=== PATIENT | female | born 1990 | race Caucasian/White ===

== ENCOUNTER 2019-12-03 13:28 | Outpatient (RCR) | payer OTHER, BC, SELFPAY ==
[2019-12-04] MEDS: RHO(D) IMMUNE GLOBULIN 300 MCG SYRINGE IM (13:40)
== END 2020-03-02 23:59 | disposition home or self-care (01) ==
LOC: ANHLAB 13:28
PROVIDERS: PCP Family Medicine; Visit Provider Obstetrics & Gynecology
DX: Z29.13 Encounter for prophylactic Rho(D) immune globulin (principal); O36.0990 Maternal care for other rhesus isoimmunization, unspecified trimester, not applicable or unspecified; Z3A.00 Weeks of gestation of pregnancy not specified
CPT/HCPCS: 36415; 85461; 90384; 96372; J2790

== ENCOUNTER 2020-01-16 15:19 | Outpatient (RCR) | payer OTHER, BC, SELFPAY ==
[2020-01-16 15:54] VITALS: BP 127/82; PULSE 77
== END 2020-01-29 09:38 | disposition home or self-care (01) ==
LOC: ANHOBOP 15:19
PROVIDERS: PCP Family Medicine; Visit Provider Obstetrics & Gynecology
DX: O36.5930 Maternal care for other known or suspected poor fetal growth, third trimester, not applicable or unspecified (principal); Z3A.34 34 weeks gestation of pregnancy
CPT/HCPCS: 59025

== ENCOUNTER 2020-01-18 09:23 | Outpatient (CLI) | payer OTHER, BC, SELFPAY ==
[2020-01-18 09:45] VITALS: BP 128/81; PULSE 85
[2020-01-18 10:00] VITALS: BP 130/83; PULSE 78
[2020-01-18 10:10] LABS: Basophils Percent Auto 0.5 % (0.2-1.2); Eosinophils Absolute Auto 0.1 K/mm3 (0-0.3); Eosinophils Percent Auto 0.7 % (0-4.4); Hematocrit 33.8 % (37.0-47.0); Hemoglobin 12.3 g/dL (12.0-15.0); Immature Granulocyte Absolute 0.03 K/mm3 (0.00-0.031); Immature Granulocyte Percent A 0.4 % (0-0.5); Lymphocytes Absolute Auto 2.69 K/mm3 (0.9-3.2); Lymphocytes Percent Auto 32.2 % (18.3-44.2); Mean Corpuscular HGB Conc 36.4 g/dl (32-36); Mean Corpuscular Hemoglobin 32.5 pg (26-34); Mean Corpuscular Volume 89.2 fl (80-100); Mean Platelet Volume 12.7 fl (7.4-10.4); Monocytes Absolute Auto 0.5 K/mm3 (0.1-0.6); Monocytes Percent Auto 5.4 % (2.6-8.5); Neutrophils Absolute Auto 5.1 K/mm3 (1.3-6.7); Neutrophils Percent Auto 60.8 % (45.5-73.1); Platelet Count Result 167 k/mm3 (150-375); Red Blood Count 3.79 M/mm3 (4.2-5.4); Red Cell Distribution Width 11.4 % (11.5-14.5); White Blood Count 8.4 K/mm3 (4.5-10.0)
[2020-01-18 10:15] VITALS: BP 130/86; PULSE 72
[2020-01-18 10:23] LABS: Alanine Aminotransferase 16 U/L (4-35); Albumin Level 3.4 g/dL (3.5-5.1); Alkaline Phosphatase 103 U/L (38-126); Anion Gap 5 mmol/L (8-16); Aspartate Amino Transferase 29 U/L (14-36); Bilirubin,Total 0.2 mg/dL (0.2-1.3); Blood Urea Nitrogen 9 mg/dL (7-17); Calcium 8.9 mg/dL (8.4-10.2); Carbon Dioxide 25 mmol/L (22-30); Chloride 103 mmol/L (98-107); Estimated Glomerular Filt Rate > 60; Glucose 76 mg/dL (65-105); Potassium 4.2 mmol/L (3.4-5.0); Sodium 133 mmol/L (137-145); Uric Acid 6.5 mg/dL (2.5-7.5)
--- NOTE | 2020-01-18 10:26 | PM.OBTRLD ---
OB - Triage/Final Diagnosis Visit Information Date of evaluation: 01/18/20 Reason for evaluation: other (rule out preeclampsia ) Evaluation Laboratory results: Laboratory Tests 01/18/20 01/18/20 09:43 09:43 WBC 8.4 RBC 3.79 L Hgb 12.3 Hct 33.8 L MCV 89.2 MCH 32.5 MCHC 36.4 H RDW 11.4 L Plt Count 167 MPV 12.7 H Immature Gran % (Auto) 0.4 Neut % (Auto) 60.8 Lymph % (Auto) 32.2 [place] % (Auto) 5.4 Eos % (Auto) 0.7 Baso % (Auto) 0.5 Lymph # (Auto) 2.69 [place] # (Auto) 0.5 Eos # (Auto) 0.1 Baso # (Auto) 0.0 Abs Immat Gran (auto) 0.03 Absolute Neuts (auto) 5.1 Absolute Nucleated RBC 0.0 Nucleated RBC % 0.0 Sodium 133 L Potassium 4.2 Chloride 103 Carbon Dioxide 25 Anion Gap 5 L BUN 9 Creatinine 0.70 Estim Creat Clear Calc Not Reportable Estimated GFR > 60 Glucose 76 Uric Acid 6.5 Calcium 8.9 Total Bilirubin 0.2 AST 29 ALT 16 Alkaline Phosphatase 103 Total Protein 6.0 L Albumin 3.4 L Vital signs: Vital Signs - 24 hr 01/18/20 09:45 01/18/20 10:00 01/18/20 10:15 Pulse Rate 85 78 72 Blood Pressure 128/81 130/83 130/86
[2020-01-18 10:30] VITALS: BP 126/76; PULSE 76
[2020-01-18 10:30] LABS: Add Urine Microscopic? YES; Appearance Urine Clear (Clear); Bacteria Urine Trace /hpf; Bilirubin Urine Negative (Negative); Blood Urine Negative (Negative); Color Urine Straw (Yellow); Glucose Urine UA Negative (Negative); Ketones Urine Negative (Negative); Leukocyte Esterase Ur 1+ LEU/UL (NEGATIVE); Nitrate Urine Negative (Negative); Protein Urine Negative (Negative); Specific Grav Ur 1.008 (1.001-1.035); Squamous Epithelial Cell Urine Few /hpf (Few); Urobilinogen Urine Negative mg/dL (<2.0)
--- NOTE | 2020-01-18 10:35 | PC.NURSE ---
Dr. Vasquez on unit. Informed of BPs and lab results. Informed of pt complaining of headache and weird vision. May D/C home with precautions. Follow up in office this week.
[2020-01-18 10:39] LABS: Creatinine Urine 45.9 mg/dL; Total Protein Urine Random 11 mg/dL; Ur Ttl Prot Creatinine Ratio 0.24 mg/mg (0-0.20)
== END 2020-01-18 10:40 | disposition home or self-care (01) ==
LOC: ANHOBOP 09:32 → ANHOBPP 09:34
PROVIDERS: Student in an Organized Health Care Education/Training Program; PCP Family Medicine; Visit Provider Obstetrics & Gynecology
DX: R03.0 Elevated blood-pressure reading, without diagnosis of hypertension (principal); Z51.81 Encounter for therapeutic drug level monitoring; Z79.899 Other long term (current) drug therapy
CPT/HCPCS: 36415; 59025; 80053; 81001; 82570; 84156; 84550; 85025; 87086; 99199

== ENCOUNTER 2020-01-28 15:04 | Inpatient (IN) | payer OTHER, BC, SELFPAY ==
[2020-01-28] VITALS (36 sets, daily range): BP systolic 102–195; BP diastolic 68–178; PULSE 25–174; RESP 16; TEMP 36.6–36.8; O2SAT 89–100
--- NOTE | 2020-01-28 15:48 | LDADM ---
This patient, Maria T Peña, was admitted to Labor/Delivery/Recovery 105 on 01/28/20 at 15:04. Plans for labor, pain management and were discussed with patient. Patient/family oriented to hospital policies and general routines including ID bracelet, bed and alarms, visiting hours, pain management, procedures, bathroom and other care routines, personal items, smoking policy, room service/diet and guest tray routines, infant security routines, and visiting hours. Patient/Family are encouraged to report perceived risks to care and to ask questions if they do not understand what they are told or what they should do. See OBIX for further documentation.
[2020-01-28] MEDS: LACTATED RINGERS 1,000 ML 125 ML IV CONT ×2 (16:16→16:39)
[2020-01-28 16:24] LABS: Basophils Absolute Auto 0.1 K/mm3 (0.0-0.1); Basophils Percent Auto 0.4 % (0.2-1.2); Eosinophils Percent Auto 0.3 % (0-4.4); Hematocrit 33.4 % (37.0-47.0); Hemoglobin 12.6 g/dL (12.0-15.0); Immature Granulocyte Absolute 0.07 K/mm3 (0.00-0.031); Immature Granulocyte Percent A 0.6 % (0-0.5); Immature Platelet Fraction Pct 19.3 % (0.9-11.2); Lymphocytes Percent Auto 35.1 % (18.3-44.2); Mean Corpuscular HGB Conc 37.7 g/dl (32-36); Mean Corpuscular Hemoglobin 32.7 pg (26-34); Mean Corpuscular Volume 86.8 fl (80-100); Mean Platelet Volume 13.4 fl (7.4-10.4); Monocytes Absolute Auto 0.6 K/mm3 (0.1-0.6); Monocytes Percent Auto 5.3 % (2.6-8.5); Neutrophils Absolute Auto 6.8 K/mm3 (1.3-6.7); Neutrophils Percent Auto 58.3 % (45.5-73.1); Platelet Count Result 184 k/mm3 (150-375); Red Blood Count 3.85 M/mm3 (4.2-5.4); Red Cell Distribution Width 11.8 % (11.5-14.5); White Blood Count 11.7 K/mm3 (4.5-10.0)
--- NOTE | 2020-01-28 16:46 | WPDANESEPPF ---
Anes - Initial Pre Proc Eval Date/Time: 01/28/20 16:46 Surgeon: Lev Osborn MD Pre Op Diagnosis: srom Patient Data Age: 29 Gender: F Height: Weight: Last Vital Signs Temp 36.6 C 01/28/20 15:30 Pulse 81 01/28/20 15:16 BP 151/98 H 01/28/20 15:16 Allergies Allergy/AdvReac Type Severity Reaction Status Date / Time Penicillins Allergy Intermediate Hives,Rash Verified 01/22/20 15:38 Home Medications Medication Instructions Recorded Confirmed Type cetirizine [Zyrtec] 10 mg PO DAILY 01/22/20 01/28/20 History levothyroxine 112 mcg PO DAILY 01/22/20 01/28/20 History prenat.vits,marissa,brb-[id number] 1 tablet PO DAILY 01/22/20 01/28/20 History [ #2] Laboratory Tests 01/28/20 01/28/20 01/28/20 15:27 15:27 15:27 WBC 11.7 K/mm3 H K/mm3 (4.5-10.0) RBC 3.85 M/mm3 L M/mm3 (4.2-5.4) Hgb 12.6 g/dL g/dL (12.0-15.0) Hct 33.4 % L % (37.0-47.0) MCV 86.8 fl fl (80-100) MCH 32.7 pg pg (26-34) MCHC 37.7 g/dl H g/dl (32-36) RDW 11.8 % % (11.5-14.5) Plt Count 184 k/mm3 k/mm3 (150-375) MPV 13.4 fl H fl (7.4-10.4) Immature Gran % (Auto) 0.6 % H % (0-0.5) Neut % (Auto) 58.3 % % (45.5-73.1) Lymph % (Auto) 35.1 % % (18.3-44.2) [place] % (Auto) 5.3 % % (2.6-8.5) Eos % (Auto) 0.3 % % (0-4.4) Baso % (Auto) 0.4 % % (0.2-1.2) Lymph # (Auto) 4.10 K/mm3 H K/mm3 (0.9-3.2) [place] # (Auto) 0.6 K/mm3 K/mm3 (0.1-0.6) Eos # (Auto) 0.0 K/mm3 K/mm3 (0-0.3) Baso # (Auto) 0.1 K/mm3 K/mm3 (0.0-0.1) Abs Immat Gran (auto) 0.07 K/mm3 H K/mm3 (0.00-0.031) Absolute Neuts (auto) 6.8 K/mm3 H K/mm3 (1.3-6.7) Absolute Nucleated RBC 0.0 K/mm3 K/mm3 (0.0-0.012) Nucleated RBC % 0.0 % % (0.0-0.2) % Immature Plt Fraction 19.3 % H % (0.9-11.2) RPR Pending HIV 1&2 Ab/P24 Ag 4thGn Pending Patient hx anesthesia problems: none Family hx anesthesia problems: none PMFSH Family History Family History Grandparent Hypertension Malignant neoplasm of prostate Family history of lung cancer Mother Patient's mother is in good health Father Patient's father is in good health Sibling Patient's sister is in good health Patient's brother is in good health Social History Social History Smoking status: Never smoker Alcohol intake: current Substance use: never Spiritual care concerns: No Anes - Eval Final PreProcedure Day of Procedure 01/28/20 16:46 Patient weight: overweight Heart: regular rate and rhythm Lungs: clear to auscultation and normal air movement Airway: Mallampati scale class II Neurological: alert and oriented Last oral intake: >/= 8 hours ASA classification: II Emergent: no Anesthetic plan: proceed Anesthesia type and monitoring: regional epidural Informed Consent: The patient's anesthetic plan and its attendant risks and benefits were discussed with the patient/family/POA. Questions were solicited and answers provided to the satisfaction of the patient/family/POA.
[2020-01-28 17:17] LABS: HIV 1/2 Ab P24 Ag Result Negative (Negative)
--- NOTE | 2020-01-28 18:27 | WPDOBADMIT ---
Obstetrics - Admit Note Admission Note: record reviewed. Additions to the history and/or subsequent changes in the physical findings follow. 29 y/o G1 at 36 4/7 weeks here after a gush of fluid around 1030 today, clear. GBS unknown. Cervix was 1cm on admission to the hospital. She began to have contractions and her labor has progressed rapidly without stimulation. Epidural in place. Has begun pushing. AVSS NST reactive TOCO: contractions every 3-4min ABD soft, nontender, gravid, vertex EXT nontender Cervix C/+2 A: IUP at 36 4/7 weeks with SROM/labor. P: Pushing. Anticipate .
--- NOTE | 2020-01-28 19:16 | P.PCNOB_ITS ---
OB - Delivery Note Procedure Delivery date: 01/28/20 Procedure: events: Labor < 37 Weeks Induction method: none Delivery augmentation: pitocin Delivery monitor: external FHT and external uterine Route of delivery: Delivery repair: vicryl (3-0) Specimen: Yes (cord blood) Quantitative Blood Loss (ml): 140 Anesthesia type: Epidural Disposition: PACU Complications: None Narrative: 29 y/o G1 at 36 4/7 weeks gestation who presented to the hospital after a gush of clear fluid. SROM was diagnosed. She had contractions and labor progressed without stimulation. She received an epidural for pain control. Her labor progressed and her cervix dilated completely. Her second stage of labor was augmented with oxytocin. She pushed with good effort. The head rotated from the LOP position to the MANNY position and delivered to the perineum, followed by the body. The nose and mouth were bulb suctioned. After a delay, the cord was clamped and cut. The was handed off the field. Cord blood was collected. The placenta delivered spontaneously and was grossly normal in appearance. The usual 3 vessel cord was noted. A distal vaginal laceration was sustained. This was reapproximated using 3 0 Vicryl in running, locked fashion. Excellent hemostasis resulted as did excellent reapproximation of the normal anatomy. Needle and instrument counts were correct. The patient was taken to recovery room in stable condition. The went to the nursery in stable condition. I was present and scrubbed for the entire delivery. [place] Baby Date of : 01/28/20 Time of : 18:54 Weeks of gestation at delivery: 36 Infant gender: Male Weight (pounds): 5 Weight (ounces): 11 presentation: vertex position: Left Occiput Anterior Placenta delivery description: Spontaneous and Normal Configuration cord vessel description: 3 Vessels score one minute: 8 score five minutes: 9
--- NOTE | 2020-01-28 19:19 | PM.OBDSVD ---
DS: Admitting Diagnosis Admitting Diagnosis Admitting Diagnosis: SROM labor at 36 4/7 weeks DS: Discharge Diagnosis Discharge Diagnosis (1) (normal spontaneous vaginal delivery): Code(s): O80 - Encounter for full-term uncomplicated delivery Status: Acute OB - DS: Summary OB Procedures : None OB Procedures Intrapartum: Spontaneous Vag Delivery OB Procedures: : RHo (D) lg Time Spent with Patient Time attestation: Total time spent providing and/or coordinating discharge services: DS: Data Data Completed and Pending Labs on day of discharge: Labs from last 24 hours 01/28/20 01/28/20 01/28/20 15:27 15:27 15:27 WBC 11.7 H RBC 3.85 L Hgb 12.6 Hct 33.4 L MCV 86.8 MCH 32.7 MCHC 37.7 H RDW 11.8 Plt Count 184 MPV 13.4 H Immature Gran % (Auto) 0.6 H Neut % (Auto) 58.3 Lymph % (Auto) 35.1 [place] % (Auto) 5.3 Eos % (Auto) 0.3 Baso % (Auto) 0.4 Lymph # (Auto) 4.10 H [place] # (Auto) 0.6 Eos # (Auto) 0.0 Baso # (Auto) 0.1 Abs Immat Gran (auto) 0.07 H Absolute Neuts (auto) 6.8 H Absolute Nucleated RBC 0.0 Nucleated RBC % 0.0 % Immature Plt Fraction 19.3 H RPR Pending HIV 1&2 Ab/P24 Ag 4thGn Blood Type O Negative Antibody Screen Positive Antibody Identification Pending Antigen Identification Pending WARNER, IgG Interpret Pending WARNER, Poly Interpret Pending WARNER, Complement Interp Pending 01/28/20 15:27 WBC RBC Hgb Hct MCV MCH MCHC RDW Plt Count MPV Immature Gran % (Auto) Neut % (Auto) Lymph % (Auto) [place] % (Auto) Eos % (Auto) Baso % (Auto) Lymph # (Auto) [place] # (Auto) Eos # (Auto) Baso # (Auto) Abs Immat Gran (auto) Absolute Neuts (auto) Absolute Nucleated RBC Nucleated RBC % % Immature Plt Fraction RPR HIV 1&2 Ab/P24 Ag 4thGn Negative Blood Type Antibody Screen Antibody Identification Antigen Identification WARNER, IgG Interpret WARNER, Poly Interpret WARNER, Complement Interp Discharge Plan Discharge Attending physician on discharge: Lev Osborn Discharging Clinician: Lev Osborn Patient Disposition: Home, Self-Care Activity: pelvic rest Diet: regular Discharge Instructions: Call or return if temperature above 100.4? F, increased abdominal pain, increased vaginal bleeding or any new problems. Stand Alone Forms: General Discharge Information Follow-up/Referrals: Lev Osborn MD [Physician] - 6 Weeks Discharge Medications: New ibuprofen 600 mg tablet 600 mg PO Q6H PRN (Reason: cramps) Qty: 30 RF: 0 No Action cetirizine [Zyrtec] 10 mg Tablet 10 mg PO DAILY RF: 0 levothyroxine 112 mcg Tablet 112 mcg PO DAILY RF: 0 #2 Tablet 1 tablet PO DAILY RF: 0 Date of admission: 01/28/20 15:04 Primary Care Provider: Lucian,Armaan Longoria Admitting Provider: Lev Osborn Attending physician on admission: Lev Osborn Condition: Stable
[2020-01-28] MEDS: OXYTOCIN 30 UNITS/NS 500 ML 30 UNITS/500 ML BAG 125 UNITS IV CONT (19:37)
[2020-01-28] MEDS: WITCH HAZEL 40 PADS 1 PAD TOPICAL (20:38)
[2020-01-28] MEDS: BENZOCAINE 20% AER SPR (*SP) 56 GM CAN 1 SPRAY TOPICAL (20:38)
[2020-01-28] MEDS: LANOLIN (LANSINOH) 7.5 GM CREAM 1 APPLIC TOPICAL (20:38)
[2020-01-28] MEDS: IBUPROFEN 600 MG TABLET PO (20:38)
[2020-01-29 05:36] LABS: Hematocrit 27.3 % (37.0-47.0)
[2020-01-29 07:36] LABS: Rapid Plasma Reagin Non-Reactive (NonReactive)
[2020-01-29] MEDS: MULTIVIT/MIN/PREN/FOL AC/IRON TABLET 1 TAB PO (07:38)
[2020-01-29] MEDS: LEVOTHYROXINE SODIUM 112 MCG TABLET PO (07:38)
[2020-01-29] MEDS: DOCUSATE SODIUM 100 MG CAPSULE PO (07:43)
[2020-01-29] MEDS: LORATADINE 10 MG TABLET PO (07:43)
[2020-01-29 08:20] VITALS: BP 140/86; PULSE 75; RESP 18; TEMP 37.2
[2020-01-29] MEDS: IBUPROFEN 600 MG TABLET PO ×3 (09:08→23:15)
--- NOTE | 2020-01-29 09:30 | PC.NURSE ---
Pt passed an approximately 4 cm clot in toilet while urinating. Pt is urinating slowly and cannot tell if she is fully emptying her bladder.
--- NOTE | 2020-01-29 10:40 | PC.NURSE ---
Pt called RN to the room because she felt a large amt of vaginal bleeding. Pt alert and oriented in bed and cooperative with fundal massage. Fundus is firm at 1/u and deviated to the left. Moderate amount of vaginal flow is expelled when massaging the uterus. When palpating bladder, pt states she feels like she could go to the BR. Ambulated pt to the BR but she was unable to fully empty. No active bleeding while in the BR. Pt returned to bed and fundus is still at 1/u and deviated to the lt. Pt agrees to straight catheterization after explaining procedure to her. 1100: Straight cath. performed without difficulty and received 550 of clear yellow fluid. Bladder is no longer palpable and fundus is firm at u/u and midline. No active vaginal bleeding at this time. Pt resting in bed comfortably at this time.
[2020-01-29] MEDS: ACETAMINOPHEN 325 MG TABLET 650 MG PO ×2 (11:35→21:46)
[2020-01-29] MEDS: RHO(D) IMMUNE GLOBULIN 300 MCG SYRINGE IM (12:17)
--- NOTE | 2020-01-29 12:30 | PC.NURSE ---
0845 0930 At bedside for baby's feeding at 0845 ; baby sleepy. Put to breast; nipple shield used and mother shown how to correctly place nipple shield. baby initially showed no feeding cues or interest in feeding; very sleepy. Mother kept him at the breast for 15minutes, and he did latch and suckle a little, but not effective breast feeding; mother states this is how he has been at feedings. Reviewed with mother positioning, alignment in football position. Reviewed nipple care, and care of nipple shield. Per Dr. Douglas's order baby will be supplemented after each breast feeding, minimum of 15cc increasing as baby desires. FOB fed at 0915. Baby initially took feeding slowly, then his effective sucking improved, and he took the total of 21cc. Parents shown paced bottle feeding, and how to burp infant. Mother set up with breast pump; assessed for correct flange size, and she will pump after each breast feeding. Reviewed care of pumping equipment. Feeding plan is now, attempt breast, then pump and bottle feed at each feeding. Mother and FOB voiced understanding of all instructions and are in agreement with this plan. Per Dr. Douglas, this feeding plan initiated because of baby's gestational age at 36 weeks, ineffective breast feeding, and baby's positive WARNER. Mother knows to call for nurse assistance at the next feeding.
--- NOTE | 2020-01-29 12:47 | P.PNOB_ITS ---
OB - PN: Subj Subjective Date/time seen: 01/29/20 12:47 Narrative: Pain OK. Would like circumcision for son. OB - PN: Obj Data Labs CBC & Chem 7: 01/29/20 05:07 Labs: Laboratory Results - last 24 hr 01/28/20 01/28/20 01/28/20 15:27 15:27 15:27 WBC 11.7 H RBC 3.85 L Hgb 12.6 Hct 33.4 L MCV 86.8 MCH 32.7 MCHC 37.7 H RDW 11.8 Plt Count 184 MPV 13.4 H Immature Gran % (Auto) 0.6 H Neut % (Auto) 58.3 Lymph % (Auto) 35.1 [place] % (Auto) 5.3 Eos % (Auto) 0.3 Baso % (Auto) 0.4 Lymph # (Auto) 4.10 H [place] # (Auto) 0.6 Eos # (Auto) 0.0 Baso # (Auto) 0.1 Abs Immat Gran (auto) 0.07 H Absolute Neuts (auto) 6.8 H Absolute Nucleated RBC 0.0 Nucleated RBC % 0.0 % Immature Plt Fraction 19.3 H RPR Non-reactive HIV 1&2 Ab/P24 Ag 4thGn Negative Blood Type Antibody Screen Antibody Identification Antigen Identification WARNER, IgG Interpret WARNER, Poly Interpret WARNER, Complement Interp Screen Baby's Blood Type Baby's WARNER Doses of RhIg Required 01/28/20 01/29/20 01/29/20 15:27 05:07 05:07 WBC RBC Hgb 10.0 L Hct 27.3 L MCV MCH MCHC RDW Plt Count MPV Immature Gran % (Auto) Neut % (Auto) Lymph % (Auto) [place] % (Auto) Eos % (Auto) Baso % (Auto) Lymph # (Auto) [place] # (Auto) Eos # (Auto) Baso # (Auto) Abs Immat Gran (auto) Absolute Neuts (auto) Absolute Nucleated RBC Nucleated RBC % % Immature Plt Fraction RPR HIV 1&2 Ab/P24 Ag 4thGn Blood Type O Negative O Negative Antibody Screen Positive TNP Antibody Identification Passive Due to RH Imm Glob Antigen Identification Cancelled WARNER, IgG Interpret Negative WARNER, Poly Interpret Negative WARNER, Complement Interp Not Performed Screen Negative Baby's Blood Type B pos Baby's WARNER Positive Doses of RhIg Required 1 OB - PN A/P Plan Comments: A: PPD#1, doing well. P: Routine care. Reviewed circumcision. Exam Psych: Other: AVSS ABD soft, nontender, fundus firm EXT nontender
--- NOTE | 2020-01-29 13:59 | WPDANLDPN2 ---
Anes-Prog Note L&D Date/Time: 01/29/20 13:59 Comfortable throughout: labor (felt more discomfort on right than left) Neuraxial method: epidural Epidural/Spinal procedure site: clean & non-tender Neuro status: Neuro function grossly intact. Cardiovascular status: normal Respiratory status: normal Airway patency: baseline Mental status: baseline Post-Op hydration status: normal Vital Signs: Last Vital Signs Temp 37.2 C 01/29/20 08:20 Pulse 75 01/29/20 08:20 Resp 18 01/29/20 08:20 BP 140/86 01/29/20 08:20 Pulse Ox 100 01/28/20 17:45 Pain score (VAS): 0/10. Patient resting in bed at time of assessment, RN at [facility]. I/O: Intake & Output 01/28/20 01/29/20 01/29/20 23:59 07:59 15:59 Intake Total 1000 240 Output Total 190 Balance 810 240 Post-procedural complaints: none Patient feedback: Patient satisfied with anesthetic care.
--- NOTE | 2020-01-29 16:30 | PC.NURSE ---
Jac Mendoza RN responded to pt call from the BR. Pt passed a clot while up to the BR. Pt states she voided completely after passing the blood clot and has no c/o dizziness. Pt returned to bed without difficulty. Vaginal bleeding ceased and fundus firm at u/u with deviation to the left with fundal massage. Vaginal clot weight = 221 gm.
--- NOTE | 2020-01-29 16:45 | PC.NURSE ---
Massaged pt fundus and expressed a small trickle of vaginal bleeding. Fundus firm at u/u and deviated to the lt. Pt states she feels the best than she has felt today in relation to rectal/vaginal fullness and an empty bladder. Told pt that I will page MD regarding blood clot and her current status.
[2020-01-29] MEDS: METHYLERGONOVINE MALEATE 0.2 MG TABLET PO ×2 (17:20→23:15)
[2020-01-29 20:30] VITALS: BP 127/82; PULSE 82; RESP 16; TEMP 36.7
[2020-01-30] MEDS: DOCUSATE SODIUM 100 MG CAPSULE PO ×2 (00:20→09:36)
[2020-01-30] MEDS: METHYLERGONOVINE MALEATE 0.2 MG TABLET PO ×2 (05:45→12:22)
[2020-01-30] MEDS: IBUPROFEN 600 MG TABLET PO ×2 (05:45→12:23)
[2020-01-30] MEDS: LEVOTHYROXINE SODIUM 112 MCG TABLET PO (07:11)
[2020-01-30 07:20] VITALS: PULSE 82; RESP 16; O2SAT 100
[2020-01-30 08:20] VITALS: BP 131/85; PULSE 79; RESP 18; TEMP 36.8; O2SAT 100
--- NOTE | 2020-01-30 08:49 | PM.OBPNVD ---
OB - PN: Subj Subjective Date/time seen: 01/30/20 08:49 Narrative: Pain OK. Would like to go home. OB - PN: Obj Data Labs CBC & Chem 7: 01/29/20 05:07 Labs: Laboratory Results - last 24 hr 01/29/20 05:07 Blood Type O Negative Antibody Screen TNP Screen Negative Baby's Blood Type B pos Baby's WARNER Positive Doses of RhIg Required 1 OB - PN A/P Plan Comments: A: PPD#2, doing well. P: Home to f/u 6 weeks. Exam Psych: Other: AVSS ABD soft, nontender, fundus firm EXT nontender
[2020-01-30] MEDS: LORATADINE 10 MG TABLET PO (09:31)
[2020-01-30] MEDS: MULTIVIT/MIN/PREN/FOL AC/IRON TABLET 1 TAB PO (09:31)
--- NOTE | 2020-01-30 11:39 | PC.NURSE ---
Patient viewed the discharge video Mother & Baby Care, The First Two Weeks . Patient was given the opportunity and encouraged to ask questions. Patient verbalized understanding of information shared and has been given the mother/baby guide for home reference.
--- NOTE | 2020-01-30 15:39 | PC.NURSE ---
0900 visit with parents. Baby at breast during the visit, but asleep at the breast, holding nipple shield in his mouth and showing no interest in sucking/breast feeding. Nurse encourage mother to continue to try putting infant to breast, with attempt, and letting infant nurse if he will, but then stopping and bottle feeding minimum of 25cc per feeding increasing as baby wants; mother to continue pumping at each feeding; Discussed how to give breast milk when available, and using formula to complete the feeding as needed. Baby took bottle feeding eagerly with strong suck swallow. Parents voiced understanding of all information shared. Mother has Mother baby guide for home reference for breast feeding and mother baby care as well as contact information. Encouraged mother to consider OP visit in a few weeks if needed and mother desires assistance. She agreed.
[2020-01-31 10:01] VITALS: BP 129/78; PULSE 88; RESP 20; TEMP 36.8; O2SAT 100
== END 2020-01-30 13:11 | disposition home or self-care (01) | DRG 806 ==
LOC: ANHLDR 19:20 → ANHOB2 21:30
PROVIDERS: Admitting Provider Obstetrics & Gynecology; PCP Family Medicine; Visit Provider Obstetrics & Gynecology
DX: O60.14X0 Preterm labor third trimester with preterm delivery third trimester, not applicable or unspecified (principal); O71.4 Obstetric high vaginal laceration alone; Z37.0 Single live birth; Z3A.36 36 weeks gestation of pregnancy; O99.284 Endocrine, nutritional and metabolic diseases complicating childbirth; E03.9 Hypothyroidism, unspecified
CPT/HCPCS: 36415; 84112; 85014; 85018; 85025; 85055; 85461; 86592; 86703; 86850; 86880; 86900; 86901; 86902; 90384; A9270; G0432; J2590; J2790; J2795; J7120

== ENCOUNTER 2021-01-22 10:11 | Outpatient (RCR) | payer BC, SELFPAY ==
[2021-01-22 11:24] LABS: Free T4 Free Thyroxine 1.03 ng/mL (0.78-2.19)
[2021-01-22] MEDS: RHO(D) IMMUNE GLOBULIN 300 MCG/2 ML SYRINGE IM (17:10)
== END 2021-04-22 23:59 | disposition home or self-care (01) ==
LOC: ANHLAB 10:11
PROVIDERS: PCP Family Medicine; Visit Provider Obstetrics & Gynecology
DX: Z29.13 Encounter for prophylactic Rho(D) immune globulin (principal); O36.0190 Maternal care for anti-D [Rh] antibodies, unspecified trimester, not applicable or unspecified; E03.9 Hypothyroidism, unspecified; Z3A.00 Weeks of gestation of pregnancy not specified
CPT/HCPCS: 36415; 84439; 84443; 85461; 90384; 96372; J2790

== ENCOUNTER 2021-04-07 17:34 | Inpatient (IN) | payer BC, SELFPAY ==
[2021-04-07] VITALS (33 sets, daily range): BP systolic 80–158; BP diastolic 38–121; PULSE 76–207; RESP 18; TEMP 36.9; O2SAT 97–100; BMI 31.6
[2021-04-07] MEDS: LACTATED RINGERS 1,000 ML 125 ML IV CONT (19:30)
[2021-04-07 19:37] LABS: Basophils Percent Auto 0.4 % (0.2-1.2); Eosinophils Percent Auto 0.2 % (0-4.4); Hematocrit 39.6 % (37.0-47.0); Hemoglobin 14.4 g/dL (12.0-15.0); Immature Granulocyte Absolute 0.03 K/mm3 (0.00-0.031); Immature Granulocyte Percent A 0.3 % (0-0.5); Lymphocytes Absolute Auto 3.19 K/mm3 (0.9-3.2); Lymphocytes Percent Auto 28.7 % (18.3-44.2); Mean Corpuscular HGB Conc 36.4 g/dl (32-36); Mean Corpuscular Volume 90.6 fl (80-100); Mean Platelet Volume 12.5 fl (7.4-10.4); Monocytes Absolute Auto 0.5 K/mm3 (0.1-0.6); Monocytes Percent Auto 4.9 % (2.6-8.5); Neutrophils Absolute Auto 7.3 K/mm3 (1.3-6.7); Neutrophils Percent Auto 65.5 % (45.5-73.1); Platelet Count Result 185 k/mm3 (150-375); Red Blood Count 4.37 M/mm3 (4.2-5.4); Red Cell Distribution Width 11.7 % (11.5-14.5); White Blood Count 11.1 K/mm3 (4.5-10.0)
--- NOTE | 2021-04-07 19:58 | P.PNAN_ITS ---
Anes - Eval Pre Procedure Procedure: labor epidural Date/Time: 04/07/21 19:58 Surgeon: tana Preop Diagnosis: pain during labor Pre Op Diagnosis: contractions Patient Data Age: 30 Gender: F Height: Weight: Last Vital Signs Pulse 129 H 04/07/21 19:55 BP 123/82 04/07/21 19:57 Pulse Ox 100 04/07/21 19:54 Allergies Allergy/AdvReac Type Severity Reaction Status Date / Time Penicillins Allergy Intermediate Hives,Rash Verified 01/22/20 15:38 Home Medications Medication Instructions Recorded Confirmed Type cetirizine [Zyrtec] 10 mg PO DAILY 01/22/20 03/15/21 History levothyroxine 112 mcg PO DAILY 01/22/20 03/15/21 History prenat.vits,marissa,[id number] 1 tablet PO DAILY 01/22/20 03/15/21 History Laboratory Tests 04/07/21 04/07/21 19:27 19:27 WBC 11.1 K/mm3 H K/mm3 (4.5-10.0) RBC 4.37 M/mm3 M/mm3 (4.2-5.4) Hgb 14.4 g/dL D g/dL (12.0-15.0) Hct 39.6 % % (37.0-47.0) MCV 90.6 fl fl (80-100) MCH 33.0 pg pg (26-34) MCHC 36.4 g/dl H g/dl (32-36) RDW 11.7 % % (11.5-14.5) Plt Count 185 k/mm3 k/mm3 (150-375) MPV 12.5 fl H fl (7.4-10.4) Immature Gran % (Auto) 0.3 % % (0-0.5) Neut % (Auto) 65.5 % % (45.5-73.1) Lymph % (Auto) 28.7 % % (18.3-44.2) [place] % (Auto) 4.9 % % (2.6-8.5) Eos % (Auto) 0.2 % % (0-4.4) Baso % (Auto) 0.4 % % (0.2-1.2) Lymph # (Auto) 3.19 K/mm3 K/mm3 (0.9-3.2) [place] # (Auto) 0.5 K/mm3 K/mm3 (0.1-0.6) Eos # (Auto) 0.0 K/mm3 K/mm3 (0-0.3) Baso # (Auto) 0.0 K/mm3 K/mm3 (0.0-0.1) Abs Immat Gran (auto) 0.03 K/mm3 K/mm3 (0.00-0.031) Absolute Neuts (auto) 7.3 K/mm3 H K/mm3 (1.3-6.7) Absolute Nucleated RBC 0.0 K/mm3 K/mm3 (0.0-0.012) Nucleated RBC % 0.0 % % (0.0-0.2) RPR Pending Patient hx anesthesia problems: none Family hx anesthesia problems: none Results Review: All pre-operative results and documents have been reviewed as part of the pre-operative evaluation. [facility] Past Medical History Medical History (Updated 04/07/21 @ 19:59 by Sarah Perkins CRNA) Hypothyroid Intrauterine Family History Family History Grandparent Hypertension Malignant neoplasm of prostate Family history of lung cancer Mother Patient's mother is in good health Father Patient's father is in good health Sibling Patient's sister is in good health Patient's brother is in good health Social History Social History Smoking status: Never smoker Alcohol intake: current Substance use: never Spiritual care concerns: No Exam Day of Procedure 04/07/21 19:58
--- NOTE | 2021-04-07 20:23 | PM.IMHP ---
H&P: HPI History of Present Illness Date/Time: 04/07/21 20:23 Chief Complaint: Intrauterine at term Narrative: 30 yo at 38w6d who presents in labor. She is having regular painful contractions. Pt reports a history of rapidly progressing labor. She denies any vaginal bleeding or leakage of fluid. Her is complicated by Rh negative status and hypothyroidism. Review of Systems Cardiovascular: Cardiovascular: Denies chest pain, Denies leg edema, Denies palpitations, Denies dyspnea and Denies dyspnea on exertion Respiratory: Respiratory: Denies cough, Denies dyspnea and Denies dyspnea on exertion Gastrointestinal: Gastrointestinal: Denies abdominal pain, Denies constipation, Denies diarrhea, Denies nausea and Denies vomiting Genitourinary: Genitourinary: Denies hematuria, Denies urinary frequency, Denies dysuria, Denies pelvic pain, Denies urinary incontinence and Denies vaginal discharge Neurologic: Reports system reviewed and no additional complaints, except as documented Psychiatric: Psychiatric: Reports no additional psychiatric complaints Endocrine: Endocrine: Denies palpitations PMFSH Past Medical History Medical History (Updated 04/07/21 @ 20:24 by Balbir Vasquez MD) Hypothyroid Intrauterine Family History Family History Grandparent Hypertension Malignant neoplasm of prostate Family history of lung cancer Mother Patient's mother is in good health Father Patient's father is in good health Sibling Patient's sister is in good health Patient's brother is in good health Social History Social History Smoking status: Never smoker Alcohol intake: current Substance use: never Spiritual care concerns: No Meds Home Medications and Allergies Home Medications Medication Instructions Recorded Confirmed Type cetirizine [Zyrtec] 10 mg PO DAILY 01/22/20 03/15/21 History levothyroxine 112 mcg PO DAILY 01/22/20 03/15/21 History prenat.vits,marissa,[id number] 1 tablet PO DAILY 01/22/20 03/15/21 History Allergies Allergy/AdvReac Type Severity Reaction Status Date / Time Penicillins Allergy Intermediate Hives,Rash Verified 01/22/20 15:38 Vital Signs Vital Signs - 24 hr 04/07/21 19:33 04/07/21 19:34 04/07/21 19:36 Pulse Rate 207 H 92 Blood Pressure 119/79 146/97 H Pulse Oximetry 100 04/07/21 19:38 04/07/21 19:39 04/07/21 19:41 Pulse Rate 92 82 88 Blood Pressure 158/107 H 137/67 142/78 H Pulse Oximetry 100 04/07/21 19:43 04/07/21 19:44 04/07/21 19:45 Pulse Rate 106 H 114 H Blood Pressure 143/84 H 155/73 H Pulse Oximetry 100 04/07/21 19:47 04/07/21 19:49 04/07/21 19:51 Pulse Rate 112 H 111 H 105 H Blood Pressure 145/38 H 148/70 H 146/62 H Pulse Oximetry 100 04/07/21 19:53 04/07/21 19:54 04/07/21 19:55 Pulse Rate 111 H 129 H Blood Pressure 139/50 L 106/75 Pulse Oximetry 100 04/07/21 19:57 04/07/21 19:59 04/07/21 20:04 Pulse Rate 119 H Blood Pressure 123/82 129/45 L Pulse Oximetry 100 100 04/07/21 20:06 04/07/21 20:21 Pulse Rate 85 Blood Pressure 103/74 Pulse Oximetry 100 Exam Const: General: no acute distress Eyes: EOM: EOMs intact bilaterally Neck: Neck: supple Thyroid: thyroid normal Chest: Breast/axilla inspection: normal inspection of the breasts Breast/axilla palpation: normal palpation of the breasts, normal palpation of the axillae and no axillary lymphadenopathy Resp: Effort & Inspection: normal respiratory effort Auscultation: clear to auscultation bilaterally Cardio: Rate: regular rate Rhythm: regular rhythm GI: Inspection: non-distended and other (Gravid) GI Palp: Yes Soft to palpation, No Tenderness to palpation present (GI) and No Guarding due to palpation present (GI) Auscultation: normal bowel sounds : Speculum Exam - Vagina: No vaginal bleeding OB/external & speculum: external exam normal; No vagin
--- NOTE | 2021-04-07 20:26 | PM.OBPRVD ---
OB - Delivery Note Procedure Procedure: Patient pushed for a spontaneous vaginal delivery. A nuchal x 1 was noted and reduced on the perineum. The fetus was delivered atraumatically and placed on the maternal abdomen. The cord was clamped and cut after 1 minute of life. The cord was double clamped and cut and a segment of cord was collected for cord gases. Cord blood was collected for blood type and Coomb's testing. The placenta delivered spontaneously and was noted to be intact. The perineum was inspected and there was a 2nd degree perineal laceration. The laceration was repaired with 3-0 vicryl in the usual fashion. The uterus was firm and good hemostasis was noted. The patient and fetus were stable in the delivery room. Induction method: None Delivery monitor: External FHT and External Uterine Route of delivery: Episiotomy description: None Laceration Description: Perineal - 2nd Degree Delivery repair: vicryl Specimen: No Quantitative Blood Loss (ml): 150 Anesthesia type: Epidural Disposition: floor () Complications: No immediate complications Baby Date of : 04/07/21 Time of : 20:10 Weeks of gestation at delivery: 38 gender: Female Weight (pounds): 6 Weight (ounces): 9 presentation: vertex position: Right Occiput Anterior Placenta delivery description: Spontaneous Cord Vessel Description: 3 Vessels and Nuchal Cord score one minute: 7 score five minutes: 9
[2021-04-07] MEDS: OXYTOCIN 30 UNITS/NS 500 ML 30 UNITS/500 ML BAG 125 UNITS IV CONT (20:45)
--- NOTE | 2021-04-07 21:11 | LDADM ---
This patient, Maria T Peña, was admitted to Labor/Delivery/Recovery 106 on 04/07/21 at 17:34. Plans for labor, pain management and were discussed with patient. Patient/family oriented to hospital policies and general routines including ID bracelet, bed and alarms, visiting hours, pain management, procedures, bathroom and other care routines, personal items, smoking policy, room service/diet and guest tray routines, infant security routines, and visiting hours. Patient/Family are encouraged to report perceived risks to care and to ask questions if they do not understand what they are told or what they should do. See OBIX for further documentation.
[2021-04-07] MEDS: IBUPROFEN 600 MG TABLET PO (23:45)
[2021-04-08 03:30] VITALS: BP 130/86; PULSE 84; RESP 18; TEMP 36.3; O2SAT 98
[2021-04-08 05:43] LABS: Hematocrit 33.2 % (37.0-47.0); Hemoglobin 12.2 g/dL (12.0-15.0)
[2021-04-08 06:30] LABS: Rapid Plasma Reagin Non-Reactive (NonReactive)
[2021-04-08] MEDS: MULTIVIT/MIN/PREN/FOL AC/IRON TABLET 1 TAB PO (07:24)
[2021-04-08] MEDS: LEVOTHYROXINE SODIUM 112 MCG TABLET PO (07:24)
[2021-04-08] MEDS: DOCUSATE SODIUM 100 MG CAPSULE PO ×2 (07:24→17:01)
[2021-04-08] MEDS: IBUPROFEN 600 MG TABLET PO ×3 (07:24→19:41)
--- NOTE | 2021-04-08 07:50 | P.PNOB_ITS ---
OB - PN: Subj Subjective Date/time seen: 04/08/21 07:50 Patient comments: no complaints, pain well controlled and tolerating diet feeding status: exclusively breast feeding Narrative: patient doing well this AM. No complaints. Pain is well controlled. She reports minimal bleeding. She is ambulating and voiding without difficulty. She is tolerating PO. She denies N/V, fever, chills. OB - PN: Obj Data Labs CBC & Chem 7: 04/08/21 03:17 Labs: Laboratory Results - last 24 hr 04/07/21 04/07/21 04/07/21 19:27 19:27 19:27 WBC 11.1 H RBC 4.37 Hgb 14.4 D Hct 39.6 MCV 90.6 MCH 33.0 MCHC 36.4 H RDW 11.7 Plt Count 185 MPV 12.5 H Immature Gran % (Auto) 0.3 Neut % (Auto) 65.5 Lymph % (Auto) 28.7 [place] % (Auto) 4.9 Eos % (Auto) 0.2 Baso % (Auto) 0.4 Lymph # (Auto) 3.19 [place] # (Auto) 0.5 Eos # (Auto) 0.0 Baso # (Auto) 0.0 Abs Immat Gran (auto) 0.03 Absolute Neuts (auto) 7.3 H Absolute Nucleated RBC 0.0 Nucleated RBC % 0.0 RPR Non-reactive Blood Type O Negative Antibody Screen Negative Screen Baby's Blood Type Baby's WARNER Doses of RhIg Required 04/08/21 04/08/21 03:17 03:17 WBC RBC Hgb 12.2 Hct 33.2 L MCV MCH MCHC RDW Plt Count MPV Immature Gran % (Auto) Neut % (Auto) Lymph % (Auto) [place] % (Auto) Eos % (Auto) Baso % (Auto) Lymph # (Auto) [place] # (Auto) Eos # (Auto) Baso # (Auto) Abs Immat Gran (auto) Absolute Neuts (auto) Absolute Nucleated RBC Nucleated RBC % RPR Blood Type O Negative Antibody Screen Negative Screen Negative Baby's Blood Type O pos Baby's WARNER Negative Doses of RhIg Required 1 OB - PN A/P Plan day: 1 Plan: routine care Comments: patient doing well H/H stable continue routine care Time Spent With Patient Time: Total time spent is greater than 50% in coordination of care (as documented) at patient's floor/unit and/or counseling patient: Time with patient: less than 15 minutes Review of Systems Review of Systems: All systems reviewed & are unremarkable except as noted in HPI and below Exam Const: General: comfortable and no acute distress Resp: Effort & Inspection: normal respiratory effort Cardio: Rate: regular rate GI: GI Palp: Yes Soft to palpation and No Tenderness to palpation present (GI) Auscultation: normal bowel sounds Other: fundus firm and below umbilicus. Psych: Affect: normal affect
[2021-04-08 08:00] VITALS: BP 143/76; PULSE 74; RESP 16; TEMP 36.8; O2SAT 99
--- NOTE | 2021-04-08 08:21 | PM.OBDSVD ---
DS: Admitting Diagnosis Discharge Date 04/09/21 Admitting Diagnosis IUP at term Labor DS: Discharge Diagnosis Discharge Diagnosis (1) (normal spontaneous vaginal delivery): Code(s): O80 - Encounter for full-term uncomplicated delivery Status: Acute OB - DS: Summary OB Procedures : None OB Procedures Intrapartum: Spontaneous Vag Delivery OB Procedures: : RHo (D) lg DS: Data Data Completed and Pending Labs on day of discharge: Labs from last 24 hours 04/08/21 04/08/21 04/07/21 03:17 03:17 19:27 WBC RBC Hgb 12.2 Hct 33.2 L MCV MCH MCHC RDW Plt Count MPV Immature Gran % (Auto) Neut % (Auto) Lymph % (Auto) [place] % (Auto) Eos % (Auto) Baso % (Auto) Lymph # (Auto) [place] # (Auto) Eos # (Auto) Baso # (Auto) Abs Immat Gran (auto) Absolute Neuts (auto) Absolute Nucleated RBC Nucleated RBC % RPR Blood Type O Negative O Negative Antibody Screen Negative Negative Screen Negative Baby's Blood Type O pos Baby's WARNER Negative Doses of RhIg Required 1 04/07/21 04/07/21 19:27 19:27 WBC 11.1 H RBC 4.37 Hgb 14.4 D Hct 39.6 MCV 90.6 MCH 33.0 MCHC 36.4 H RDW 11.7 Plt Count 185 MPV 12.5 H Immature Gran % (Auto) 0.3 Neut % (Auto) 65.5 Lymph % (Auto) 28.7 [place] % (Auto) 4.9 Eos % (Auto) 0.2 Baso % (Auto) 0.4 Lymph # (Auto) 3.19 [place] # (Auto) 0.5 Eos # (Auto) 0.0 Baso # (Auto) 0.0 Abs Immat Gran (auto) 0.03 Absolute Neuts (auto) 7.3 H Absolute Nucleated RBC 0.0 Nucleated RBC % 0.0 RPR Non-reactive Blood Type Antibody Screen Screen Baby's Blood Type Baby's WARNER Doses of RhIg Required Discharge Plan Discharge Attending physician on discharge: Lev Osborn Discharging Clinician: Lev Osborn Patient Disposition: Home, Self-Care Activity: pelvic rest Diet: regular Discharge Instructions: Call or return if temperature above 100.4? F, increased abdominal pain, increased vaginal bleeding or any new problems. Stand Alone Forms: General Discharge Information Follow-up/Referrals: Lev Osborn MD [Physician] - 6 Weeks Discharge Medications: New ibuprofen 600 mg tablet 600 mg PO Q6H PRN (Reason: cramps) Qty: 30 RF: 0 Continued cetirizine [Zyrtec] 10 mg Tablet 10 mg PO DAILY RF: 0 levothyroxine 112 mcg Tablet 112 mcg PO DAILY RF: 0 prenat.vits,marissa,[id number] Tablet 1 tablet PO DAILY RF: 0 Date of admission: 04/07/21 17:34 Primary Care Provider: Lucian,Armaan Longoria Admitting Provider: Lev Osborn Attending physician on admission: Lev Osborn Condition: Stable
--- NOTE | 2021-04-08 11:51 | WPDANLDPN2 ---
Anes-Prog Note L&D Date/Time: 04/08/21 11:51 Comfortable throughout: labor and delivery Neuraxial method: epidural Epidural/Spinal procedure site: clean & non-tender Neuro status: Neuro function grossly intact. Cardiovascular status: normal Respiratory status: normal Airway patency: baseline Mental status: baseline Post-Op hydration status: normal Vital Signs: Last Vital Signs Temp 36.8 C 04/08/21 08:00 Pulse 74 04/08/21 08:00 Resp 16 04/08/21 08:00 BP 143/76 H 04/08/21 08:00 Pulse Ox 99 04/08/21 08:00 Pain score (VAS): 2 I/O: Intake & Output 04/07/21 04/08/21 04/08/21 23:59 07:59 15:59 Intake Total 1000 Balance 1000 Post-procedural complaints: none Patient feedback: Patient satisfied with anesthetic care.
[2021-04-08 12:00] VITALS: BP 125/83; PULSE 80; RESP 16; TEMP 36.7; O2SAT 99
[2021-04-08] MEDS: RHO(D) IMMUNE GLOBULIN 300 MCG/2 ML SYRINGE IM (14:02)
--- NOTE | 2021-04-08 14:47 | PC.NURSE ---
0737 - Reported to RN that mom was latching independently with no discomfort. Consulted with patient to assess needs related to . Mother led conversation with her experience with feeding baby so far. Mother works well with her infant and has latched with less than 130-150 degrees and states it feels pinchy . Demonstrated to the mother how to detach from the breast. Reviewed good handwashing when working with , breast, nipples and how to protect the nipples with a deep latch. Encouraged understanding the benefits of skin to skin, responding to feeding cues, frequencies of feeding 8-12 times in 24 hours (approximately 2-3 hours), duration of feedings, milk production, intake/output feeding sheet and signs of adequate intake. Discussed stimulating infant with skin to skin, hand expressing colostrum, touch and talking to infant to encourage eating at the breast. Reviewed positioning and alignment, supporting breast, off-centered (asymmetrical latch) and leading with the chin with big open wide gape. Latched to the breast with no discomfort to mother. Education given to mother of how to visualize suck/swallow ratios and drinking at the breast. was able to maintain latch without discomfort to mother. Resources used to facilitate learning were used from the visual handout and mom and baby guide. Mother voiced understanding responding to feeding cues, may need to stimulating approximately 2-3 hours from the start of the last feeding, calling for assistance if the does not latch or there discomfort . Reported to primary RN.
[2021-04-08 15:15] VITALS: BP 130/86; PULSE 75; RESP 20; TEMP 36.4
--- NOTE | 2021-04-08 15:32 | PC.NURSE ---
[id number] Requested a consult from primary RN due to the has not breastfed in over five hours. Infant demonstrates tongue sucker, shallow latching and less than 130-150 wide open gape. Mother works well with her . Mother demonstrates the benefits of skin to skin, responding to feeding cues, frequencies of feeding 8-12 times in 24 hours (approximately 2-3 hours), duration of feedings, milk production, intake/output feeding sheet and signs of adequate intake. Mother demonstrates stimulating infant with skin to skin, hand expressing colostrum, touch and talking to to encourage eating at the breast. Reviewed positioning and alignment, supporting breast, off-centered (asymmetrical latch) and leading with the chin with big open wide gape. latched optimally to the left breast in football position with a bit of discomfort at first, it subsided, then after 10 min the had a less than 140 degree open and mother states it is beginning to hurt. Education given to mother of how to visualize suck/swallow ratios, drinking at the breast and there are few swallows. Offered the right breast and infant is content at this time with one fist closed and the other hand opened and relaxed. Parents verbalizes understanding of watching for signs of optimal feeding. Reviewed the size of infants stomach and reiterated the signs of intake/output, weight and jaundice. Nipple care, comfort and healing with warm, wet washcloth to rinse breast and leave to air-dry. Resources used to facilitate learning were used from the visual handout/ tool/mom and baby guide. Mother voiced understanding responding to feeding cues, may need to stimulating infant approximately 2-3 hours from the start of the last feeding, calling for assistance if the does not latch or there discomfort . Reported to primary RN.
--- NOTE | 2021-04-08 17:34 | PC.NURSE ---
Set mom up with breastpump d/t infant being sleepy today and not adequately.
[2021-04-08 20:00] VITALS: BP 133/86; PULSE 82; RESP 18; TEMP 36.9; O2SAT 98
[2021-04-09] MEDS: IBUPROFEN 600 MG TABLET PO (04:35)
[2021-04-09 07:10] VITALS: BP 121/60; PULSE 76; TEMP 36.6; O2SAT 98
--- NOTE | 2021-04-09 08:44 | PM.OBPNVD ---
OB - PN: Subj Subjective Date/time seen: 04/09/21 08:44 Narrative: Pain OK. Would like to go home. OB - PN: Obj Data Labs CBC & Chem 7: 04/08/21 03:17 Labs: Laboratory Results - last 24 hr 04/08/21 03:17 Blood Type O Negative Antibody Screen Negative Screen Negative Baby's Blood Type O pos Baby's WARNER Negative Doses of RhIg Required 1 OB - PN A/P Plan Comments: A: PPD#2, doing well. P: Home to f/u 6 weeks. Exam Psych: Other: AVSS ABD soft, nontender, fundus firm EXT nontender
[2021-04-09] MEDS: LEVOTHYROXINE SODIUM 112 MCG TABLET PO (08:55)
[2021-04-09] MEDS: MULTIVIT/MIN/PREN/FOL AC/IRON TABLET 1 TAB PO (08:55)
--- NOTE | 2021-04-09 11:32 | PC.NURSE ---
[id number] Consulted with patient to assess needs related to , supplementing and pumping. Mother led conversation with her experience with feeding baby so far. The parents work well with her and has a history an , milk production and how hypothyroidism plays a part in that. She has a healthy plan going forward feeding her at home. Reminded parents to use good handwashing to prevent infection. has had appropriate feedings in the past 24 hours and meets the outcomes for weight, output (discussed this with the transmission engineer and infant is supplemented with formula) and jaundice. Mother states she feels confident to continue feeding her at home. Reviewed production of human milk, transition of milk, signs of adequate intake and engorgement prevention/relief and when to call the infant care provider using the mom and baby guide. Reviewed medications mother is taking with information provided by [facility], community resources and outpatient services as listed in the mom and baby guide/[facility] website. Reinforced watching for feeding cues with responsive feeding and how to stimulate infant to initiate feeding three hours from the start of the last feeding. Mother voiced understanding of information shared. Reported to primary RN.
[2021-04-10 09:51] VITALS: BP 125/78; PULSE 84; RESP 16; TEMP 36.6; O2SAT 100
== END 2021-04-09 11:31 | disposition home or self-care (01) | DRG 806 ==
LOC: ANHLDR 19:19 → ANHOB2 23:20
PROVIDERS: Admitting Provider Student in an Organized Health Care Education/Training Program; PCP Family Medicine; Visit Provider Obstetrics & Gynecology
DX: O62.3 Precipitate labor (principal); O36.0930 Maternal care for other rhesus isoimmunization, third trimester, not applicable or unspecified; Z37.0 Single live birth; Z3A.38 38 weeks gestation of pregnancy; O99.284 Endocrine, nutritional and metabolic diseases complicating childbirth; E03.9 Hypothyroidism, unspecified; O36.8330 Maternal care for abnormalities of the fetal heart rate or rhythm, third trimester, not applicable or unspecified; O70.1 Second degree perineal laceration during delivery
CPT/HCPCS: 36415; 85014; 85018; 85025; 85461; 86592; 86850; 86900; 86901; 90384; A9270; J2590; J2790; J2795; J7120

== ENCOUNTER 2022-06-15 10:01 | Outpatient (RCR) | payer BC, SELFPAY ==
[2022-06-17] MEDS: RHO(D) IMMUNE GLOBULIN 300 MCG/2 ML SYRINGE IM (10:09)
== END 2022-09-13 23:59 | disposition home or self-care (01) ==
LOC: ANHLAB 10:01
PROVIDERS: PCP Family Medicine; Visit Provider Obstetrics & Gynecology
DX: Z36.89 Encounter for other specified antenatal screening (principal); O26.899 Other specified pregnancy related conditions, unspecified trimester; Z67.91 Unspecified blood type, Rh negative
CPT/HCPCS: 36415; 85461; 86850; 86900; 86901; 90384; 96372; J2790

== ENCOUNTER 2022-08-23 05:58 | Inpatient (IN) | payer BC, SELFPAY ==
[2022-08-23] VITALS (72 sets, daily range): BP systolic 104–172; BP diastolic 62–112; PULSE 74–111; RESP 18; TEMP 36.1–36.6; O2SAT 96–100; BMI 29.6
[2022-08-23 06:51] LABS: Basophils Percent Auto 0.5 % (0.2-1.2); Eosinophils Absolute Auto 0.1 K/mm3 (0-0.3); Eosinophils Percent Auto 0.8 % (0-4.4); Hematocrit 34.7 % (37.0-47.0); Hemoglobin 12.3 g/dL (12.0-15.0); Immature Granulocyte Absolute 0.03 K/mm3 (0.00-0.031); Immature Granulocyte Percent A 0.4 % (0-0.5); Lymphocytes Absolute Auto 2.95 K/mm3 (0.9-3.2); Lymphocytes Percent Auto 38.5 % (18.3-44.2); Mean Corpuscular HGB Conc 35.4 g/dl (32-36); Mean Corpuscular Hemoglobin 32.5 pg (26-34); Mean Corpuscular Volume 91.8 fl (80-100); Mean Platelet Volume 12.7 fl (7.4-10.4); Monocytes Absolute Auto 0.5 K/mm3 (0.1-0.6); Monocytes Percent Auto 6.1 % (2.6-8.5); Neutrophils Absolute Auto 4.1 K/mm3 (1.3-6.7); Neutrophils Percent Auto 53.7 % (45.5-73.1); Platelet Count Result 150 k/mm3 (150-375); Red Blood Count 3.78 M/mm3 (4.2-5.4); Red Cell Distribution Width 12.2 % (11.5-14.5); White Blood Count 7.7 K/mm3 (4.5-10.0)
--- NOTE | 2022-08-23 06:53 | LDADM ---
This patient, Maria T Peña, was admitted to Labor/Delivery/Recovery 103 on 08/23/22 at 05:58. Plans for labor, pain management and were discussed with patient. Patient/family oriented to hospital policies and general routines including ID bracelet, bed and alarms, visiting hours, pain management, procedures, bathroom and other care routines, personal items, smoking policy, room service/diet and guest tray routines, infant security routines, and visiting hours. Patient/Family are encouraged to report perceived risks to care and to ask questions if they do not understand what they are told or what they should do. See OBIX for further documentation.
[2022-08-23] MEDS: OXYTOCIN 30 UNITS/NS 500 ML 30 UNITS/500 ML BAG 999 UNITS IV CONT (07:25)
[2022-08-23] MEDS: LACTATED RINGERS 1,000 ML 125 ML IV CONT ×2 (07:25→13:24)
--- NOTE | 2022-08-23 13:08 | WPDOBADMIT ---
Obstetrics - Admit Note Admission Note: Late entry from 0845 on 08/23/22 record reviewed. Additions to the history and/or subsequent changes in the physical findings follow. 32 y/o at 39 1/7 weeks here for induction of labor. GBS neg. History of fast labor. AVSS NST raactive TOCO: contractions irregularly ABD soft, nontender, gravid, vertex EXT nontender Cervix 2-3/50/-2. AROM with clear fluid. Vertex. A: IUP at term, desiring induction of labor. P: Oxytocin. Anticipate .
--- NOTE | 2022-08-23 13:11 | PM.OBPNLAB ---
Pain Control Date/time seen: 08/23/22 13:11 Comments: Feeling more uncomfortable. Pelvic Exam Dilation (cm): 3 Effacement (%): 50 station: -2 Comments: IUPC placed Contractions Contraction frequency: 3 Contraction pattern: Regular Status status: Category l Assessment and Plan Comments: Continue labor.
--- NOTE | 2022-08-23 16:24 | PC.NURSE ---
1025 - Introductions were made and mother shared how she would like to feed her baby with and possibly bottle feeding related to her past experience and low milk volume with her first. Encouraged mother to place infant [id number] until the first feeding if infant is stable and to wait on the weight to help stabilize, reduce stress, and improve latching by allowing time to explore parent's chest using instincts. Education was shared on how to protect her milk supply with latching and/or using hand expression to remove milk if infant doesn't latch in the first hour, then finger feed colostrum to the to preserve breast focus. Resources provided with educational trifold for bonding and feeding . Parents voiced understanding of information and to call if there is a request for assistance.
--- NOTE | 2022-08-23 16:54 | P.PCNOB_ITS ---
OB - Delivery Note Procedure Delivery date: 08/23/22 Procedure: Induction of labor with Induction method: Per Pitocin Protocol Delivery augmentation: Rupture of Membranes Delivery monitor: External FHT, External Uterine and Internal Uterine Route of delivery: Laceration Description: Perineal - 1st Degree Delivery repair: vicryl (3-0) Specimen: Yes (Cord blood) Quantitative Blood Loss (ml): 80 Disposition: PACU Complications: None Narrative: 32 y/o at 39 1/7 weeks gestation who presented to the hospital for induction of labor. Oxytocin was administered intravenously. Amniotomy was performed with return of clear fluid. She received an epidural for pain control. Her labor progressed and her cervix dilated completely. She pushed with good effort and delivered the infant's head to the perineum, followed by the body. The nose and mouth were bulb suctioned. After a delay, the cord was clamped and cut. The was handed off the field. Cord blood was collected. The placenta delivered spontaneously and was grossly normal in appearance. The usual 3 vessel cord was noted. A first degree midline perineal laceration was sustained. This was reapproximated using 3 0 Vicryl in the usual layered fashion. Excellent hemostasis resulted as did excellent reapproximation of the normal anatomy. Needle and instrument counts were correct. The patient was taken to recovery room in stable condition. The went to the nursery in stable condition. I was present and scrubbed for the entire delivery. [place] Baby Date of : 08/23/22 Time of : 16:30 Weeks of gestation at delivery: 39 gender: Female presentation: vertex position: Left Occiput Anterior Placenta delivery description: Spontaneous and Normal Configuration Cord Vessel Description: 3 Vessels, Nuchal Cord (x2) and Delayed Cord Clamping
--- NOTE | 2022-08-23 16:59 | PM.OBDSVD ---
DS: Admitting Diagnosis Discharge Date 08/24/22 Admitting Diagnosis IUP at 39 1/7 weeks Hypothyroidism DS: Discharge Diagnosis Discharge Diagnosis (1) (normal spontaneous vaginal delivery): Code(s): O80 - Encounter for full-term uncomplicated delivery Status: Acute (2) Hypothyroidism affecting : Code(s): O99.280 - Endocrine, nutritional and metabolic diseases complicating , unspecified trimester; E03.9 - Hypothyroidism, unspecified Status: Acute OB - DS: Summary OB Procedures : None OB Procedures Intrapartum: Spontaneous Vag Delivery OB Procedures: : None Time Spent with Patient Time attestation: Total time spent providing and/or coordinating discharge services: DS: Data Data Completed and Pending Labs on day of discharge: Labs from last 24 hours 08/23/22 06:24 WBC 7.7 RBC 3.78 L Hgb 12.3 Hct 34.7 L MCV 91.8 MCH 32.5 MCHC 35.4 RDW 12.2 Plt Count 150 MPV 12.7 H Immature Gran % (Auto) 0.4 Neut % (Auto) 53.7 Lymph % (Auto) 38.5 [place] % (Auto) 6.1 Eos % (Auto) 0.8 Baso % (Auto) 0.5 Lymph # (Auto) 2.95 [place] # (Auto) 0.5 Eos # (Auto) 0.1 Baso # (Auto) 0.0 Abs Immat Gran (auto) 0.03 Absolute Neuts (auto) 4.1 Absolute Nucleated RBC 0.0 Nucleated RBC % 0.0 RPR Pending Blood Type O Negative Antibody Screen Positive Antibody Identification Passive Due to RH Imm Glob Antigen Identification TNP WARNER, IgG Interpret Not Performed WARNER, Poly Interpret Neg WARNER, Complement Interp Not Performed Discharge Plan Discharge Attending physician on discharge: Lev Osborn Discharging Clinician: Lev Osborn Patient Disposition: Home, Self-Care Activity: pelvic rest Diet: regular Discharge Instructions: Call or return if temperature above 100.4? F, increased abdominal pain, increased vaginal bleeding or any new problems. Stand Alone Forms: General Discharge Information Follow-up/Referrals: Lev Osborn MD [Physician] - 6 Weeks Discharge Medications: New ibuprofen 600 mg tablet 600 mg PO Q6H PRN (Reason: cramps) Qty: 30 0RF Continued cetirizine [Zyrtec] 10 mg Tablet 10 mg PO DAILY levothyroxine 112 mcg Tablet 112 mcg PO DAILY prenat.vits,marissa,[id number] Tablet 1 tablet PO DAILY Date of admission: 08/23/22 05:58 Primary Care Provider: Lucian,Armaan Longoria Admitting Provider: Lev Osborn Attending physician on admission: Lev Osborn Condition: Stable
[2022-08-23] MEDS: OXYTOCIN 30 UNITS/NS 500 ML 30 UNITS/500 ML BAG 125 UNITS IV CONT (17:08)
--- NOTE | 2022-08-23 19:30 | PC.NURSE ---
Pt straight cathed due to not being able to void but discomfort/cramping and requesting to be straight cathed.
[2022-08-23] MEDS: IBUPROFEN 600 MG TABLET PO (19:39)
[2022-08-23] MEDS: ACETAMINOPHEN 325 MG TABLET 650 MG PO (20:29)
--- NOTE | 2022-08-23 21:30 | PC.NURSE ---
Pt straight cathed due to not being able to void but discomfort/cramping and requesting to be straight cathed.
[2022-08-24] MEDS: IBUPROFEN 600 MG TABLET PO ×2 (03:06→14:40)
[2022-08-24] MEDS: ACETAMINOPHEN 325 MG TABLET 650 MG PO ×2 (03:06→13:15)
[2022-08-24 03:15] VITALS: BP 144/94; PULSE 62; RESP 18; TEMP 36; O2SAT 99
[2022-08-24 04:25] LABS: Hematocrit 34.9 % (37.0-47.0); Hemoglobin 12.5 g/dL (12.0-15.0)
[2022-08-24 07:40] VITALS: BP 130/77; PULSE 64; RESP 16; TEMP 36.7; O2SAT 99
[2022-08-24 08:10] LABS: Rapid Plasma Reagin Non-Reactive (NonReactive)
[2022-08-24] MEDS: MULTIVIT/MIN/PREN/FOL AC/IRON TABLET 1 TAB PO (08:45)
[2022-08-24] MEDS: LEVOTHYROXINE SODIUM 112 MCG TABLET PO (08:45)
[2022-08-24] MEDS: LORATADINE 10 MG TABLET PO (08:45)
[2022-08-24] MEDS: DOCUSATE SODIUM 100 MG CAPSULE PO (08:45)
[2022-08-24] MEDS: WITCH HAZEL 40 PADS 1 PAD TOPICAL (08:45)
--- NOTE | 2022-08-24 09:10 | PM.OBPNVD ---
OB - PN: Subj Subjective Date/time seen: 08/24/22 09:10 Narrative: Pain OK. Would like to go home. OB - PN: Obj Data Labs 08/24/22 03:25 Labs: Laboratory Results - last 24 hr 08/23/22 08/24/22 08/24/22 06:24 03:25 03:36 Hgb 12.5 Hct 34.9 L RPR Non-reactive Blood Type O Negative Antibody Screen Positive Antibody Identification Passive Due to RH Imm Glob Cancelled Antigen Identification TNP Cancelled WARNER, IgG Interpret Not Performed Cancelled WARNER, Poly Interpret Neg Cancelled WARNER, Complement Interp Not Performed Cancelled Screen Negative Baby's Blood Type O pos Baby's WARNER Positive Doses of RhIg Required 1 OB - PN A/P Plan day: 1 Comments: A: PPD#1, doing well. P: Home to f/u 6 weeks. Exam Psych: Other: AVSS ABD soft, nontender, fundus firm EXT nontender
[2022-08-24 12:14] VITALS: BP 129/74; PULSE 74; RESP 16; TEMP 37.4; O2SAT 100
[2022-08-24] MEDS: RHO(D) IMMUNE GLOBULIN 300 MCG/2 ML SYRINGE IM (14:40)
[2022-08-26 11:14] VITALS: BP 141/92; PULSE 71; RESP 18; TEMP 36.7; O2SAT 100
== END 2022-08-24 19:07 | disposition home or self-care (01) | DRG 807 ==
LOC: ANHLDR 17:01 → ANHOB2 21:15
PROVIDERS: Admitting Provider Obstetrics & Gynecology; PCP Family Medicine; Visit Provider Obstetrics & Gynecology
DX: O99.284 Endocrine, nutritional and metabolic diseases complicating childbirth (principal); Z37.0 Single live birth; Z3A.39 39 weeks gestation of pregnancy; E03.9 Hypothyroidism, unspecified; O70.0 First degree perineal laceration during delivery; O69.81X0 Labor and delivery complicated by cord around neck, without compression, not applicable or unspecified
CPT/HCPCS: 36415; 85014; 85018; 85025; 85461; 86592; 86850; 86880; 86900; 86901; 86902; 90384; A9270; J2590; J2790; J2795; J7120